=== PATIENT | male | born 1950 | race Caucasian/White ===

== ENCOUNTER 2017-05-21 08:12 | Emergency (ER) | payer BC, MEDICARE ==
[2017-05-21 08:32] VITALS: BP 159/94
[2017-05-21] MEDS ORDERED: Ketorolac INJ* 60 MG/2 ML VIAL IM ONE (08:46)
--- NOTE | 2017-05-21 08:47 | UC ---
Back Pain HPI - HPI Summary HPI Summary: C/O left low back pain into the hip over the last 2 days. Started with walking across the parking lot. H/O back pain 30 years ago. - History of Current Complaint Chief Complaint: UCBackPain Stated Complaint: LOWER BACK/HIP PAIN Time Seen by Provider: 05/21/17 08:33 Hx Obtained From: Patient Onset/Duration: Sudden Onset, Lasting Days - 2, Still Present Timing: Constant Severity Initially: Mild Severity Currently: Severe Pain Intensity: 10 Back Pain: Is Discrete @ - left low back. Character: Sharp, Aching Aggravating Factor(s): Movement, Walking Alleviating Factor(s): Nothing Associated Signs And Symptoms: Positive: Pain with Weight Bearing. Negative: Fever, Weakness, Numbness, Tingling, Bladder Incontinence, Bowel Incontinence - Allergies/Home Medications Allergies/Adverse Reactions: Allergies Allergy/AdvReac Type Severity Reaction Status Date / Time No Known Allergies Allergy Verified 05/21/17 08:25 Home Medications: Home Medications Amlodipine Besylate [Norvasc] 5 mg PO 05/21/17 [History] Atorvastatin* [Lipitor 20 MG*] 20 mg PO QPM 05/21/17 [History Confirmed 05/21/17 ] Cholecalciferol TAB* [Vitamin D TAB*] 1,000 unit PO DAILY 05/21/17 [History Confirmed 05/21/17] Enalapril TAB* [Vasotec TAB*] 20 mg PO BID 05/21/17 [History Confirmed 05/21/17] Hydrochlorothiazide TAB* [Hydrodiuril TAB*] 25 mg PO DAILY 05/21/17 [History Confirmed 05/21/17] metFORMIN* [Glucophage 500 MG TAB *] 500 mg PO DAILY 05/21/17 [History Confirmed 05/21/17] PMH/Surg Hx/FS Hx/Imm Hx Endocrine History: Diabetes, Dyslipidemia Cardiovascular History: Hypertension - Surgical History Surgical History: None - Family History Known Family History: Positive: Diabetes - Social History Occupation: Unemployed Lives: With Family Alcohol Use: Occasionally Substance Use Type: None Smoking Status (MU): Never Smoked Tobacco Review of Systems Musculoskeletal: Myalgia Is Patient Immunocompromised?: No All Other Systems Reviewed And Are Negative: Yes Physical Exam Triage Information Reviewed: Yes Appearance: Well-Appearing, Well-Nourished, Pain Distress Vital Signs: Initial Vital Signs Temp 98.4 F 03/10/18 08:28 Pulse 81 05/21/17 08:28 Resp 20 05/21/17 08:28 BP 159/94 05/21/17 08:28 Pulse Ox 99 05/21/17 08:28 Vital Signs Reviewed: Yes Eyes: Positive: Conjunctiva Clear Neck exam: Normal Respiratory Exam: Normal Cardiovascular Exam: Normal Musculoskeletal: Positive: ROM Intact - left hip without pain. Mild limited external rotation, ROM Limited @ - Back extension with pain Neurological Exam: Normal Psychological Exam: Normal Skin Exam: Normal Back Pain Course/Dx - Differential Dx/Diagnosis Differential Diagnosis/HQI/PQRI: Arthritis, Herniated Disc, Strain, Sprain Provider Diagnoses: Acute Low back pain. Osteoarthritis lumbar spine Discharge - Discharge Plan Condition: Stable Disposition: HOME Prescriptions: Cyclobenzaprine TAB* [Flexeril 10 MG TAB*] 10 mg PO TID PRN #60 tab PRN Reason: Pain - Back Ibuprofen TAB* [Motrin TAB* 600 MG] 600 mg PO Q6H PRN #120 tab PRN Reason: Pain - Arthritis Referrals: Chema Cuellar MD [Primary Care Provider] -
--- NOTE | 2017-05-21 09:58 | RAD ---
HISTORY: Left hip pain, COMPARISONS: None VIEWS: 3, Frontal view of the pelvis with frontal and frog-leg views of the left hip FINDINGS: BONE DENSITY: Normal. BONES: There is no displaced fracture. JOINTS: There is no arthropathy. ALIGNMENT: There is no dislocation. SOFT TISSUES: Unremarkable. OTHER FINDINGS: Degenerative changes noted of the lower lumbar spine. IMPRESSION: NO ACUTE OSSEOUS INJURY. IF SYMPTOMS PERSIST, RECOMMEND REPEAT IMAGING.
--- NOTE | 2017-05-21 09:59 | RAD ---
HISTORY: Low back pain COMPARISONS: None VIEWS: 5 , Frontal, lateral, and bilateral oblique views of the lumbar spine. FINDINGS: ALIGNMENT: There is a mild dextroscoliotic curvature of the spine VERTEBRAL BODIES: The vertebral body heights are normal. The interpedicular distances are normal. There is multilevel anterolateral marginal osteophyte formation. There is partial pneumatization of this vertebral body. JOINTS: There is facet osteoarthritis, most pronounced at L4-L5 and L5-S1. INTERVERTEBRAL DISCS: There is diffuse loss of intervertebral disc height. SOFT TISSUE: Unremarkable. OTHER: The pelvis is unremarkable. The lung bases are clear. IMPRESSION: DEGENERATIVE DISC DISEASE AND OSTEOARTHRITIS, MOST PRONOUNCED AT L4-L5 AND L5-S1
== END 2017-05-21 10:12 | disposition home or self-care (01) ==
LOC: UCCORT 08:12
DX: M54.5 Low back pain (principal); M47.896 Other spondylosis, lumbar region; E11.9 Type 2 diabetes mellitus without complications; Z79.84 Long term (current) use of oral hypoglycemic drugs; E78.5 Hyperlipidemia, unspecified; I10 Essential (primary) hypertension
CPT/HCPCS: 72110; 96372; 99212; G0463; J1885